=== PATIENT | male | born 1960 | race Caucasian/White ===

== ENCOUNTER 2019-11-14 18:58 | Observation (INO) ==
[2019-11-14] MEDS ORDERED: Ondansetron 4 MG/2 ML VIAL IVP PRN (21:11)
[2019-11-14] MEDS ORDERED: Naloxone 0.4 MG/ML INJ IVP PRN (21:11)
[2019-11-14] MEDS ORDERED: Nitroglycerin 0.4 MG TAB.SUBL SL PRN (21:35)
[2019-11-14] MEDS ORDERED: clonazePAM 0.5 MG TABLET PO SCH (22:30)
[2019-11-14] MEDS ORDERED: atenoloL 25 MG TABLET PO SCH (22:30)
[2019-11-14] MEDS ORDERED: Carbidopa/Levodopa 25/100 TABLET PO SCH (22:30)
[2019-11-14] MEDS: Carbidopa/Levodopa ER 50/200 TABLET PO SCH (23:11)
[2019-11-14] MEDS: Primidone 50 MG TABLET PO SCH (23:12)
[2019-11-14] MEDS: Ringers Solution, Lactated 1,000 ML IVC SCH (23:12)
[2019-11-15 01:02] LABS: Basophils # 0.1 K/mcL (0.0-0.2); Basophils % 0.7 %; Eosinophils # 0.1 K/mcL (0.0-0.6); Eosinophils % 1.5 %; Hematocrit 36.7 % (37.5-50.1); Immature Granulocytes % 0.4 % (0-4); Lymphocytes # 1.8 K/mcL (0.6-4.6); Lymphocytes % 26.5 %; Mean Corpuscular HGB Conc 32.7 g/dL (31.6-35.5); Mean Corpuscular Hemoglobin 30.1 pg (28.0-33.3); Mean Platelet Volume 9.9 fL (9.4-12.4); Monocytes # 0.7 K/mcL (0.0-1.3); Monocytes % 9.8 %; Neutrophils # 4.2 K/mcL (1.6-8.9); Platelet Count 230 K/mcL (140-400); Red Blood Count 3.99 M/mcL (4.19-5.50); Segmented Neutrophils % 61.1 %; White Blood Count 6.9 K/mcL (4.3-11.1)
[2019-11-15 01:19] LABS: BUN/Creatinine Ratio 29 (6-26); Blood Urea Nitrogen 19 mg/dL (8-23); Calcium 8.5 mg/dL (8.6-10.3); Carbon Dioxide 30 mEq/L (23-29); Chloride 104 mEq/L (98-107); Chol/HDL Ratio 4.4 (0-4.9); Cholesterol 105 mg/dL (< 200); Glucose 92 mg/dL (70-105); HDL Cholesterol 24 mg/dL (40-59); LDL Cholesterol,Calculated 67 mg/dL (0-99); Magnesium 1.9 mg/dL (1.6-2.6); Osmolality,Calculated 286 (280-300); Potassium 3.6 mEq/L (3.5-5.1); Sodium 137 mEq/L (136-145); Triglycerides 71 mg/dL (< 150); eGFR For African Americans > 60 (> 60); eGFR For Non-African Americans > 60 (> 60)
[2019-11-15] MEDS ORDERED: *HR* Heparin 5,000 UNIT/ML VIAL SQ SCH (06:00)
[2019-11-15] MEDS ORDERED: Carbidopa/Levodopa ER 50/200 TABLET PO SCH (08:00)
[2019-11-15 08:14] VITALS: BP 136/77
[2019-11-15 08:46] LABS: Estimated Average Glucose 123 mg/dl
[2019-11-15] MEDS ORDERED: Aspirin Enteric Coated 81 MG Tablet PO SCH (09:00)
[2019-11-15] MEDS: Primidone 50 MG TABLET PO SCH ×2 (09:07→14:00)
[2019-11-15] MEDS: Carbidopa/Levodopa ER 50/200 TABLET PO SCH (09:07)
[2019-11-15] MEDS ORDERED: Regadenoson 0.4 MG/5 ML SYRINGE IVP ONE (10:20)
[2019-11-15] MEDS ORDERED: Carbidopa/Levodopa 25/100 TABLET PO ONE (14:30)
[2019-11-15] MEDS: Ringers Solution, Lactated 1,000 ML IVC SCH (14:40)
== END 2019-11-15 15:20 | disposition home or self-care (01) ==
LOC: 3BNU
PROVIDERS: ADMIT Internal Medicine; ATTEND Internal Medicine